=== PATIENT | male | born 1975 | race Two or more races ===

== ENCOUNTER 2020-04-14 22:23 | Emergency (ER) | payer OTHER ==
[~2020-04-14] VITALS: Ht 172.7 cm; Wt 92.4 kg
--- NOTE | 2020-04-14 22:31 | NUR ---
PATTERNMAKER HAND: EKG DONE IN TRIAGE AT THIS TIME.
--- NOTE | 2020-04-14 22:50 | NUR ---
pt to room from lobby
--- NOTE | 2020-04-14 23:21 | NUR ---
PT BIB POV. PER PT HE HAD 4 EPISODES OF VOMITTING EARLIER TODAY AFTER EATING, BUT NOW ONLY IS NAUSEATED WITH BILAT UPPER ABD QUAD PAIN. PT STATES HE FEELS MUCH BETTER BUT WANTED TO GET CHECKED OUT. PT RESTING IN [facility], MONITORING IN PLACE, ABEL AT THIS TIME, WCJOAQUIN.
[2020-04-14 23:22] LABS: BASOPHILS % (AUTO) 1 % (0-1); EOSINOPHILS % (AUTO) 1 % (1-7); LYMPHOCYTES % (AUTO) 19 % (22-44); MEAN CORPUSCULAR HEMOGLOBIN 31.5 pg (27.5-34.5); MEAN CORPUSCULAR HGB CONC 35.3 g/dL (33.2-36.2); MEAN PLATELET VOLUME 7.1 fL (7.4-10.4); MONOCYTES % (AUTO) 6 % (2-9); NEUTROPHILS % (AUTO) 74 % (42-75); PLATELET COUNT 241 x10^3/uL (130-400); RED BLOOD COUNT 5.19 x10^6/uL (4.38-5.82); RED CELL DISTRIBUTION WIDTH 13.1 % (9.4-14.8)
[2020-04-14] MEDS ORDERED: ONDANSETRON ODT 4 MG ONE (23:24)
[2020-04-14 23:26] LABS: MD NO
[2020-04-14] MEDS ORDERED: ONDANSETRON ODT 4 MG PO ONE (23:30)
[2020-04-14 23:35] LABS: ALANINE AMINOTRANSFERASE 46 U/L (12-78); ANION GAP 8 mmol/L (5-15); CALCIUM 8.8 mg/dL (8.5-10.1); CHLORIDE 108 mmol/L (98-107); CREATININE 0.98 mg/dL (0.7-1.3)
[2020-04-14 23:39] LABS: ALKALINE PHOSPHATASE 63 U/L (45-117); TOTAL PROTEIN 8.2 g/dL (6.4-8.2); TROPONIN I < 0.015 ng/mL (0.000-0.045)
[2020-04-15 00:23] VITALS: BP 138/84
== END 2020-04-15 00:25 | disposition home or self-care (01) ==
LOC: ED 23:30
DX: A09 Infectious gastroenteritis and colitis, unspecified (principal); R94.31 Abnormal electrocardiogram [ECG] [EKG]
CPT/HCPCS: 36415; 80053; 83690; 84484; 85025; 93005; 99284; Q0162